=== PATIENT | male | born 2000 | race Caucasian/White ===

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

== ENCOUNTER 2020-08-23 20:55 | Emergency (ER) | payer OTHER ==
[2020-08-23 21:14] VITALS: BP 155/97; PULSE 76; RESP 18; TEMP 97.3
[2020-08-23] MEDS ORDERED: LIDOCAINE 1% INJ 10MG/ML (20 ML MDV) SQ ONE (21:30)
[2020-08-23] MEDS ORDERED: DIPH,PERTUS(ACELL)TETVAC-LF 0.5 ML VIAL IM ONE (21:30)
[2020-08-23] MEDS ORDERED: AMOXIC-POT CLAV 875MG STARTER PACK 2 TAB BTL PO STA (21:30)
--- NOTE | 2020-08-23 21:42 | ED ---
Animal Bite HPI - General Chief Complaint: Animal Bite Stated Complaint: Dog Bite Time Seen by Provider: 08/23/20 21:23 Source: patient, RN notes reviewed, old records reviewed Mode of arrival: ambulatory Limitations: no limitations - History of Present Illness Initial Comments: Patient is a 20-year-old male who presents emergency department today for e valuation of dog bite over the right forearm. He reports it was a friend's dog. The dog is up-to-date on vaccines. Patient reports swelling and pain over his right forearm. He reports full range of motion of his wrist and hand. Patient states that his tetanus shot is not up-to-date. Patient reports that he has no ALLERGIES to antibiotics. - Related Data Home Medications Medication Instructions Recorded Confirmed Albuterol Sulfate [Proair Hfa] 1 puff INHALATION RT-Q4H PRN 08/23/20 08/23/20 Previous Rx's Medication Instructions Recorded Amoxic-Pot Clav 875-125Mg 1 tab PO Q12HR #20 tablet 08/23/20 [Augmentin 875-125] Amoxic-Pot Clav 875-125Mg 1 tab PO Q12HR #20 tablet 08/23/20 [Augmentin 875-125] Allergies Allergy/AdvReac Type Severity Reaction Status Date / Time peanut Allergy Anaphylaxis Verified 08/23/20 21:47 tree nut Allergy Anaphylaxis Verified 08/23/20 21:47 Review of Systems ROS Statement: Those systems with pertinent positive or pertinent negative responses have been documented in the HPI. ROS Other: All systems not noted in ROS Statement are negative. Past Medical History Past Medical History: Asthma History of Any Multi-Drug Resistant Organisms: MRSA Date of last positivie culture/infection: 02/25/16 MDRO Source:: left thigh Past Surgical History: No Surgical Hx Reported Past Psychological History: No Psychological Hx Reported Smoking Status: Current some day smoker Past Alcohol Use History: None Reported Past Drug Use History: None Reported General Exam - General Exam Comments Initial Comments: 20-year-old male. Alert and oriented 3. Limitations: no limitations General appearance: alert, in no apparent distress Head exam: Present: atraumatic, normocephalic, normal inspection Eye exam: Present: normal appearance, PERRL, EOMI. Absent: scleral icterus, conjunctival injection, periorbital swelling ENT exam: Present: normal exam, mucous membranes moist Neck exam: Present: normal inspection. Absent: tenderness, meningismus, lymphadenopathy Respiratory exam: Present: normal lung sounds bilaterally. Absent: respiratory distress, wheezes, rales, rhonchi, stridor Cardiovascular Exam: Present: regular rate, normal rhythm, normal heart sounds. Absent: systolic murmur, diastolic murmur, rubs, gallop, clicks GI/Abdominal exam: Present: soft, normal bowel sounds. Absent: distended, tenderness, guarding, rebound, rigid Extremities exam: Present: normal inspection, full ROM, normal capillary refill. Absent: tenderness, pedal edema, joint swelling, calf tenderness Right Upper Arm exam: Present: normal inspection, full ROM Elbow exam: Present: normal inspection, full ROM Forearm Wrist exam: Present: full ROM. Absent: normal inspection (Patient has a swollen right forearm. He has a 2 cm gaping the puncture wound over the dorsal aspect of the proximal forearm. He has a 1 cm puncture wound over the volar aspect of the forearm.) Hand Wrist exam: Present: normal inspection, full ROM Back exam: Present: normal inspection Neurological exam: Present: alert, oriented X3, CN II-XII intact Psychiatric exam: Present: normal affect, normal mood Skin exam: Present: warm, dry, intact, normal color. Absent: rash Course Vital Signs 08/23/20 21:12 Temperature 97.3 F L Pulse Rate 76 Respiratory 18 Rate Blood Pressure 155/97 O2 Sat by Pulse 99 Oximetry Procedures - Laceration Laceration #1 Indication: laceration (R forearm dorsal aspect) Size (cm): 2 Description: linear Depth: simple, single layer Anesthetic Used: lidocaine 1% Anesthesia Technique: local infiltration Amount (mls): 4 Pre-repair: wound explored, irrigated extensively Type of Sutures: nylon Size of Sutures: 5-0 Number of Sutures: 2 Patient Tolerated Procedure: well, no complications Laceration #2 Indication: laceration Size (cm): 1 Description: linear Anesthesia Technique: local infiltration Amount (mls): 2 Pre-repair: wound explored, irrigated extensively Type of Sutures: nylon Size of Sutures: 5-0 Number of Sutures: 1 Patient Tolerated Procedure: well, no complications Medical Decision Making - Medical Decision Making 20-year-old male presents with a dog bite to the right forearm. He reports that the dog is up-to-date on vaccines. He needed an updated tetanus shot this was completed today. Patient's wounds were thoroughly irrigated with 3 L of fluid and iodine. Patient dorsal aspect laceration was gaping and closed with 2 loose sutures. The second dog bite site was closed with 1 suture on the volar aspect of the forearm. Patient tolerated the procedure well. I discussed close monitoring for signs of infection including redness swelling or drainage. Discussed return parameters. Full range of motion and sensation to the hand and wrist. - Radiology Data Radiology results: report reviewed Forearm x-ray shows evidence of soft tissue swelling no evidence of osseous lesion. Disposition Clinical Impression: Dog bite Disposition: HOME SELF-CARE Condition: Good Instructions (If sedation given, give patient instructions): Animal Bite (ED) Additional Instructions: Please return to the emergency room in 7-10 days to have sutures removed. Please leave wound covered for the first 24-48 hours and then leave open to air after that time. Please use clean soap and water to clean the suture area to prevent scabbing over the top of your sutures. Please watch for any signs of infection which may include but not limited to increased pain, swelling, redness, fever or chills. Please return to the emergency room if any signs of infection do occur. Please return to the emergency room for any other concerns or complications. Please use medication as discussed. Please follow up with family doctor if symptoms have not improved over the next two days. Please return to the emergency room if your symptoms increase or worsen or for any other concerns. Prescriptions: Amoxic-Pot Clav 875-125Mg [Augmentin 875-125] 1 tab PO Q12HR #20 tablet Amoxic-Pot Clav 875-125Mg [Augmentin 875-125] 1 tab PO Q12HR #20 tablet Is patient prescribed a controlled substance at d/c from ED?: No Referrals: Leisa Villanueva MD [Primary Care Provider] - 1-2 days Time of Disposition: 22:22
--- NOTE | 2020-08-23 21:51 | XR ---
Result: Clinical History: Pain status post dog bite. Comparison: None available. Technique: Frontal and lateral views of the right forearm. Findings: The bone mineralization is appropriate for age. No acute fracture or dislocation is seen. Alignment is anatomic. The visualized joint spaces are pr eserved. The elbow and carpal arcs are congruent. There is soft tissue wound at the lateral aspect o f the proximal forearm. No significant soft tissue gas or radiopaque foreign body. Impression: Soft tissue wound without acute osseous abnormality.
[2020-08-23] MEDS ORDERED: BACITRACIN OINT 1 EACH PACKET TOPICAL ONE (21:57)
== END 2020-08-23 22:36 | disposition home or self-care (01) ==
LOC: EC 20:55
DX: S51.811A Laceration without foreign body of right forearm, initial encounter (principal); J45.909 Unspecified asthma, uncomplicated; Z23 Encounter for immunization; F17.200 Nicotine dependence, unspecified, uncomplicated; Z91.010 Allergy to peanuts; Z91.030 Bee allergy status; W54.0XXA Bitten by dog, initial encounter
CPT/HCPCS: 73090; 90715; 99284; 90471; 12002; J2001